=== PATIENT | male | born 1955 | race Caucasian/White ===

== ENCOUNTER → 2018-11-06 | Outpatient (CLI) | payer MEDICARE ==
[~2018-11-06] MED LIST: HEPARIN 1,000 UNITS/ML 10ML VIAL (FOR RADIOLOGY& DIALYSIS ONLY) As Ordered ONE; ISOVUE-300 61% 50ML VIAL (Q9967) As Ordered ONE; LIDOCAINE 2% MDV 20 ML VIAL As Ordered ONE; MIDAZOLAM INJ 2 MG/2 ML VIAL (J2250) As Ordered ONE; fentaNYL 100 MCG/2 ML INJECTION (J3010) As Ordered ONE
[2018-11-06 07:19] LABS: BASO % 0.5 % (0.0-1.0); EOS % 0.6 % (0.0-3.0); HEMATOCRIT 46.5 % (42.0-52.0); HEMOGLOBIN 15.5 g/dl (13.5-17.5); LYMPH # 1.7 10^3/uL (1.5-4.5); LYMPH % 27.9 % (24.0-44.0); MEAN CORPUSCULAR HEMOGLOBIN 30.5 pg (27.0-33.0); MEAN CORPUSCULAR HGB CONC 33.3 g/dl (32.0-36.5); MEAN CORPUSCULAR VOLUME 91.4 fl (80.0-96.0); MONO # 0.5 10^3/uL (0.0-0.8); MONO % 8.4 % (0.0-5.0); NEUTROPHILS # 3.8 10^3/uL (1.8-7.7); PLATELET COUNT, AUTOMATED 222 10^3/uL (150-450); RED BLOOD COUNT 5.09 10^6/uL (4.30-6.10); WHITE BLOOD COUNT 6.2 10^3/uL (4.0-10.0)
[2018-11-06 07:31] LABS: BLOOD UREA NITROGEN 12 MG/DL (7-18); CALCIUM LEVEL 8.6 MG/DL (8.8-10.2); CARBON DIOXIDE LEVEL 28 MEQ/L (21-32); CHLORIDE LEVEL 108 MEQ/L (98-107); CREATININE FOR GFR 0.94 MG/DL (0.70-1.30); GLOMERULAR FILTRATION RATE > 60.0 (>49); GLUCOSE, FASTING 86 MG/DL (70-100); POTASSIUM SERUM 5.1 MEQ/L (3.5-5.1); SODIUM LEVEL 141 MEQ/L (136-145)
--- NOTE | 2018-11-16 08:24 | REPIR ---
DATE OF PROCEDURE: 11/06/2018 ATTENDING SURGEON: Dr. Valentina Leone DERRICK BOAT LEVER OPERATOR: Marliu Franco and Kenzie Floyd PREOPERATIVE DIAGNOSES: Left lower extremity swelling and pain, left external iliac artery occlusive disease. POSTOPERATIVE DIAGNOSES: Left lower extremity swelling and pain, left external iliac artery occlusive disease. PROCEDURE: Right common femoral arterial cannulation, left common femoral arterial cannulation, aortogram, iliofemoral angiogram, left lower extremity angiogram via the left common femoral arterial sheath, Mynx closure of the bilateral common femoral arteriotomy using #5-Amharic Mynx closure devices INDICATION: The patient is a 63-year-old male with swelling in the left lower extremity with pain and ultrasound showing atherosclerotic arterial occlusive disease. The patient will undergo an angiogram with possible angioplasty, stent and/or atherectomy. ANESTHESIA: Local with 20 mL of 2% lidocaine. FLUORO TIME: 2.0 minutes. CONTRAST: 14 mL. IMPLANTS: #5-Amharic bilateral Mynx closure devices to close the femoral arteriotomies. COMPLICATIONS: None. DRAINS: None. SPECIMENS: None. PROCEDURE: The patient was taken to the angiography suite, placed supine on the angiography room table and then prepped and draped in a standard surgical fashion. The right common femoral artery was cannulated with the micropuncture needle after anesthetizing the overlying skin with 2% lidocaine. The micropuncture wire was advanced to the micropuncture needle, which was upsized to a micropuncture sheath. There was inability to pass the wire through the right iliac system into the aorta and iliofemoral angiogram was performed showing high grade near occlusive lesion in the right external iliac artery and common iliac artery. The left common femoral artery was then cannulated with a sheath placed. The catheter was placed in the aorta and aortogram was performed. Catheter was pulled down to the level of the bifurcation iliac arteries and an iliofemoral angiogram was performed. The left lower extremity angiogram was then performed through the left common femoral arterial sheath. Catheters and wires were removed. The sheaths were removed and #5-Amharic Mynx closure device was used to close the arteriotomy in the right and left common femoral artery with an additional 10 minutes of adjunctive pressure applied for hemostasis. Dressings were then applied. The patient tolerated the procedure well. All instrument, sponge and needle counts were correct at the end the case. There were no complications. Dr. Leone was present for and directed the entire case. The patient was transferred to the holding area and subsequent discharged in stable condition.
== END | disposition home or self-care (01) ==
LOC: M IRPRO 06:20
PROVIDERS: ATTEND Surgery Vascular Surgery
DX: I70.202 Unspecified atherosclerosis of native arteries of extremities, left leg (principal)
CPT/HCPCS: 36140; 75716; 80048; 85025; C1760; C1769; C1887; C1894; G0269; Q9967

== ENCOUNTER → 2018-11-29 | Outpatient (CLI) | payer MEDICARE ==
--- NOTE | 2018-12-25 09:53 | REPIR ---
DATE OF PROCEDURE: 11/29/2018 ATTENDING SURGEON: Dr. Valentina Leone ASSISTANTS: Marilu Franco and Kenzie Floyd. PREOPERATIVE DIAGNOSES: Right lower extremity claudication, aortoiliac atherosclerotic arterial occlusive disease, right common iliac artery occlusion, chronic total occlusion of the artery. POSTOPERATIVE DIAGNOSES: Right lower extremity claudication, aortoiliac atherosclerotic arterial occlusive disease, right common iliac artery occlusion, chronic total occlusion of the artery. PROCEDURE: Aortogram, iliofemoral angiogram, bilateral common femoral arterial cannulations, bilateral 5-Bermudian Mynx closure devices. INDICATIONS: The patient is a 63-year-old male with occluded right common iliac artery, who will undergo attempted recanalization with angioplasty and stenting. Risks, benefits and alternative treatment options were discussed with the patient. ANESTHESIA: Local sedation with 2 mg Versed, 100 mcg of fentanyl and 20 mL of 2% lidocaine. FLUOROSCOPIC TIME: 23.2 minutes. CONTRAST: 24 mL of Isovue-300. SEDATION TIME: From 8:39 a.m. to 9:51 a.m. for a total of 72 minutes. The sedation and cardiopulmonary monitoring were performed by the registered nurse in the room under my direct supervision. I was present for and directed the entire case. There were no sedation related complications. The patient was returned to pre-sedation levels at the completion of the procedure. HEPARIN: 7000 units. COMPLICATIONS: None. DRAINS: None. SPECIMENS: None. Bilateral Mynx closure devices to close the arteriotomy in the right and left common femoral artery. DESCRIPTION OF PROCEDURE: The patient was taken to the angiography suite, placed supine on the angiography room table and then prepped and draped in a standard surgical fashion. The common femoral artery was cannulated bilaterally and attempts were made to cross through the right common iliac artery occlusion without success, after which, the sheaths were removed and the bilateral Mynx closure devices were placed for hemostasis. Dressings were then applied. The patient tolerated procedure well. All instrument, sponge and needle counts were correct at the end the case. There were no complications. Dr. Leone was present for and directed the entire case. The patient was transferred to the holding area and subsequently discharged in stable condition.
== END | disposition home or self-care (01) ==
LOC: M IRPRO 06:29
PROVIDERS: ATTEND Surgery Vascular Surgery
DX: I70.211 Atherosclerosis of native arteries of extremities with intermittent claudication, right leg (principal); I70.0 Atherosclerosis of aorta; I70.92 Chronic total occlusion of artery of the extremities; Z53.8 Procedure and treatment not carried out for other reasons
CPT/HCPCS: 36140; 37220; 99152; 99153; C1760; C1769; C1887; C1894; J2250; J3010

== ENCOUNTER → 2018-12-05 | Outpatient (CLI) | payer MEDICARE ==
[~2018-12-05] MED LIST changes: +PROTAMINE SULF INJ 50 MG/5 ML VIAL (J2720) As Ordered ONE
[2018-12-05 07:15] LABS: HEMATOCRIT 43.4 % (42.0-52.0); MEAN CORPUSCULAR HEMOGLOBIN 30.3 pg (27.0-33.0); MEAN CORPUSCULAR HGB CONC 32.3 g/dl (32.0-36.5); MEAN CORPUSCULAR VOLUME 93.9 fl (80.0-96.0); PLATELET COUNT, AUTOMATED 226 10^3/uL (150-450); RED BLOOD COUNT 4.62 10^6/uL (4.30-6.10); WHITE BLOOD COUNT 7.6 10^3/uL (4.0-10.0)
[2018-12-05 07:42] LABS: BLOOD UREA NITROGEN 12 MG/DL (7-18); CALCIUM LEVEL 8.7 MG/DL (8.8-10.2); CARBON DIOXIDE LEVEL 28 MEQ/L (21-32); CHLORIDE LEVEL 107 MEQ/L (98-107); CREATININE FOR GFR 0.82 MG/DL (0.70-1.30); GLOMERULAR FILTRATION RATE > 60.0 (>49); GLUCOSE, FASTING 79 MG/DL (70-100); POTASSIUM SERUM 4.5 MEQ/L (3.5-5.1); SODIUM LEVEL 141 MEQ/L (136-145)
--- NOTE | 2018-12-25 09:56 | REPIR ---
DATE OF PROCEDURE: 12/05/2018 PREOPERATIVE DIAGNOSES: Aortoiliac atherosclerotic occlusive disease> Total occlusion of the right common iliac artery. Right lower extremity claudication. Chronic total occlusion of an artery. POSTOPERATIVE DIAGNOSE: Aortoiliac atherosclerotic occlusive disease> Total occlusion of the right common iliac artery. Right lower extremity claudication. Chronic total occlusion of an artery. PROCEDURE PERFORMED: Ultrasound-guided left brachial artery cannulation aortogram, iliofemoral angiogram, recanalization of the occluded right common iliac artery, right common femoral arterial cannulation, right common and external iliac artery angioplasty and stent with a 10 x 49 wall stent postdilated with an 8 x 40 mm balloon, MYNX closure of the left brachial artery, MYNX closure of the right common femoral arteriotomy. SURGEON: Dr. Valentina Leone. BUSINESS SERVICES ASSOCIATE: Kenzie Floyd and Marilu Teixeira. ANESTHESIA: Local with sedation with 1 mg Versed, 50 mcg of fetanyl, 20 mL of 2% lidocaine. FLUORO TIME: 7.4 minutes. CONTRAST: 11 mL of Isovue-300. SEDATION TIME: From 9:50 a.m. to 9:12 a.m. for a total of 82 minutes. The sedation and cardiopulmonary monitoring were performed by the registered nurse in the room under my direct supervision. I was present for directed the entire case. The patient had no sedation related complications and was returned to pre-sedation levels at the completion of procedure. HEPARIN: 7000 units, protamine 50 mg COMPLICATIONS: None. DRAINS: None. SPECIMENS: None. IMPLANT: Left brachial artery, MYNX closure device, right common femoral artery, MYNX closure device. INDICATION: The patient is a 63-year-old male with complete occlusion of his right common iliac artery who will undergo attempt at recanalization via the brachial and femoral approach. Risks, benefits, alternative options were discussed with the patient. DESCRIPTION OF THE PROCEDURE: The patient was taken to the angiography suite, placed supine on the angiography room table and prepped and draped in standard surgical fashion. Ultrasound was used guide cannulation of left brachial artery. A sheath was then placed into the descending thoracic aorta and into the infrarenal aorta and recanalization of the right common iliac artery was performed with reentry into the right external iliac artery. The right common femoral artery was then cannulated and the wire brought out through the sheath in the right common femoral artery confirming intraluminal positioning. The catheter was then advanced over the wire placed in the aorta from the right common femoral artery after which the right common iliac and external iliac artery were angioplasty and stented with a 10 x 49 wall stent postdilated with an 8 x 40 mm balloon. A completion aortogram showed resolution of the occlusion with excellent flow through the common iliac artery into the external iliac artery distally. The sheath in the left brachial artery and the right common femoral artery were removed with MYNX closure device with an additional 10 minutes of adjunctive pressure applied for hemostasis. Dressings were then applied. The patient tolerated procedure well. All instrument, sponge, needle counts were correct at the end the case were no complications. Dr. Leone was present for directed the entire case. The patient was transferred to the holding area and subsequently discharged in stable condition.
== END | disposition home or self-care (01) ==
LOC: M IRPRO 06:15
PROVIDERS: ATTEND Surgery Vascular Surgery
DX: I70.211 Atherosclerosis of native arteries of extremities with intermittent claudication, right leg (principal); I70.0 Atherosclerosis of aorta; I70.92 Chronic total occlusion of artery of the extremities
CPT/HCPCS: 37221; 80048; 85027; 99152; 99153; C1725; C1760; C1769; C1876; C1887; C1894; J2250; J2720; J3010

== ENCOUNTER → 2018-12-19 | Outpatient (CLI) | payer MEDICARE ==
--- NOTE | 2018-12-19 08:45 | REP ---
Aorto-iliac Doppler arterial ultrasound: History: Intermittent low bilateral lower extremity claudication. Atherosclerosis. Atherosclerosis of the renal artery. Status post a right iliac artery stent. Findings: Essentially normal biphasic flow is observed bilaterally in the iliac arteries. No aneurysm is seen. No evidence of significant stenosis noted. Arterial diameter and Doppler velocity chart: Proximal aorta, 1.8 by 2.2 cm, PSV 87 cm/S. Mid aorta 2.0 x 1.7 cm, PSV 47 cm/S Distal aorta 2.0 x 1.5 cm, PSV 61 cm/S Right common iliac artery 1.3 x 0.7 cm, PSV 148 cm/S in-stent Right external iliac artery PSV 78 cm/S Right Distal external iliac artery 92 cm/S Left common iliac artery 1.3 x 1.1 cm, PSV 63 cm/S Left external iliac artery 72 cm/S Left distal external iliac artery 81 cm/S Electronically Signed by Joshua Pinedo MD 12/19/2018 08:37 A
== END ==
LOC: M RAD 06:17
PROVIDERS: ATTEND Surgery Vascular Surgery
DX: I70.213 Atherosclerosis of native arteries of extremities with intermittent claudication, bilateral legs (principal); I70.1 Atherosclerosis of renal artery; Z95.820 Peripheral vascular angioplasty status with implants and grafts

== ENCOUNTER → 2019-08-01 | Outpatient (CLI) | payer MEDICARE ==
--- NOTE | 2019-08-01 14:49 | REP ---
Bilateral lower extremity arterial Doppler ultrasound: History: Peripheral vascular disease. Findings: Ankle brachial indices are normal measured at 1.0 in each lower extremity. Atherosclerotic plaquing is visualized bilaterally mild to moderate in degree. No high-grade stenosis is seen. Triphasic and biphasic waveforms are noted throughout the lower extremity runoff arteries. Arterial Doppler velocity chart right lower extremity: Right CF A 130 cm/S Profunda 98 Proximal SFA 98 Mid SFA 85 Distal SFA 81 Popliteal 64 Proximal AT A 32 Tibioperoneal trunk 68 Proximal INFECTION CONTROL SPECIALIST 55 Distal INFECTION CONTROL SPECIALIST 53 Distal AT A 21 Arterial Doppler velocity chart left lower extremity: Left CF A 114 cm/S Profunda 89 Proximal SFA 107 Mid SFA 99 Distal SFA 86 Popliteal 63 Proximal AT A 41 Tibioperoneal trunk 54 Proximal INFECTION CONTROL SPECIALIST 36 Distal INFECTION CONTROL SPECIALIST 64 Distal AT A 35 Electronically Signed by Joshua Pinedo MD 08/01/2019 02:40 P
== END ==
LOC: M RAD 12:17
PROVIDERS: ATTEND Surgery Vascular Surgery
DX: I70.213 Atherosclerosis of native arteries of extremities with intermittent claudication, bilateral legs (principal)

== ENCOUNTER → 2020-02-18 | Outpatient (CLI) | payer MEDICARE ==
--- NOTE | 2020-02-18 08:29 | REP ---
Clinical: Atherosclerotic disease. Comparison: Technique: Real time carey scale and color Doppler ultrasound examination using curved array transducer. Findings: Abdominal aorta demonstrates moderate atheromatous plaquing without evidence for aneurysm. No periaortic fluid collections are identified. Bilateral common iliac artery stents are appreciated and appear patent. However, Doppler interrogation as described below suggests moderate stenosis through the right common iliac stent. Proximal aorta 2.5 x 1.9 cm. Mid aorta (renal artery level) 2.1 x 2.2 cm. Mid aorta 2.1 x 2.2 cm. Distal aorta 1.9 x 2.7 cm. Right common iliac artery 1.0 x 1.2 cm maximal diameter. Left common iliac artery 1.4 x 1.2 cm maximal diameter. Distal aorta PSV: 42 cm/sec Right common iliac artery PSV: 120 cm/sec Left common iliac artery PSV: 49 cm/sec Right external iliac artery PSV: 108 cm/sec Left external iliac artery PSV: 100 cm/sec Impression: 1. Atheromatous plaquing without evidence for abdominal aortic aneurysm. 2. Bilateral iliac artery stents with increasing atheromatous plaquing and stenosis of the right common iliac artery suggested. Electronically Signed by Sagar Mckinley MD 02/18/2020 08:21 A
== END ==
LOC: M RAD 06:43
PROVIDERS: ATTEND Physician Assistant
DX: I70.213 Atherosclerosis of native arteries of extremities with intermittent claudication, bilateral legs (principal)

== ENCOUNTER → 2020-08-28 | Outpatient (CLI) | payer MEDICARE ==
--- NOTE | 2020-09-03 11:13 | REP ---
BILATERAL LOWER EXTREMITY DUPLEX DOPPLER ARTERIAL ULTRASOUND HISTORY: Claudication, atherosclerosis. COMPARISON: 08/01/2019. TECHNIQUE: Real-time sonographic evaluation and duplex Doppler interrogation of the bilateral lower extremity arterial systems is performed. FINDINGS: There is no significant change when compared to the prior study. Mild scattered plaquing is again seen diffusely throughout both lower extremity arterial systems. There is no compelling duplex Doppler sonographic evidence of hemodynamically significant stenosis bilaterally. Normal flow velocities are recorded bilaterally. Diffuse triphasic and biphasic waveforms are present. Ankle brachial indices (GINA) right is 1.18 and left 1.09. BILATERAL LOWER EXTREMITY ARTERIAL VELOCITY CHART RIGHT PSV (cm/s) LEFT PSV (cm/s) ARC TRIMMER 114 76.4 Profunda 98.1 90.1 Proximal SFA 131 108 Popliteal 77.3 62.4 Proximal CHRIS 43.4 58.2 Tibioperoneal trunk 57.5 40.3 Proximal HOT AIR FURNACE INSTALLER AND REPAIRER 68.5 78.5 Distal HOT AIR FURNACE INSTALLER AND REPAIRER 60.1 84.5 Distal CHRIS 16.3 55.4 MTDD
== END ==
LOC: M RAD 13:53
PROVIDERS: ATTEND Physician Assistant
DX: I70.213 Atherosclerosis of native arteries of extremities with intermittent claudication, bilateral legs (principal)

== ENCOUNTER → 2021-05-01 | Outpatient (CLI) | payer MEDICARE ==
--- NOTE | 2021-05-01 10:22 | REP ---
INDICATION: ATHSCL [place] ARTER W/ CALUDICATION JORGE L LEGS COMPARISON: None. TECHNIQUE: Real time floyd scale and color Doppler evaluation of the bilateral lower extremity arterial vasculature using linear high frequency transducer. FINDINGS: Floyd scale and color images demonstrate moderate to severe partially calcified atheromatous plaquing bilaterally. Doppler interrogation demonstrates biphasic and triphasic arterial waveforms. The right lower extremity demonstrates focal 2.6:1 stenosis through the distal posterior tibial artery. The left lower extremity demonstrates 2.5:1 stenosis through the proximal superficial femoral artery and 3.7:1 stenosis through the distal posterior tibial artery. Peak systolic velocities (cm/sec) Common femoral artery: Right 104.1; Left 47.1 Profunda femoris: Right 59.8; Left 50.0 SFA (proximal): Right 75.2; Left 76.4 SFA (mid): Right 74.8; Left 92.5 SFA (distal): Right 80.9; Left 71.6 Popliteal artery: Right 53.9; Left 53.1 CHRIS (prox.): Right 44.2; Left 49.1 Tibioperoneal trunk: Right 61.5; Left 48.4 SWITCH ADJUSTER (prox.): Right 27.4; Left 22.5 SWITCH ADJUSTER (distal): Right 69.9; Left 82.6 CHRIS (distal): Right 17.2; Left 44.6 IMPRESSION: Moderate to severe bilateral atheromatous plaquing with few scattered focal areas of stenosis as described above. <Electronically signed by Sagar Mckinley > 05/01/21 1012
== END ==
LOC: M RAD 08:36
PROVIDERS: ATTEND Physician Assistant
DX: I70.213 Atherosclerosis of native arteries of extremities with intermittent claudication, bilateral legs (principal)

== ENCOUNTER → 2023-03-28 | Outpatient (CLI) | payer MEDICARE | LOC: M RAD 13:01 | PROVIDERS: ATTEND Surgery | DX: I73.9 Peripheral vascular disease, unspecified (principal) ==

== ENCOUNTER → 2024-03-29 | Outpatient (CLI) | payer MEDICARE | LOC: M RAD 14:23 | PROVIDERS: ATTEND Surgery | DX: I73.9 Peripheral vascular disease, unspecified (principal) ==